=== PATIENT | male | born 1950 | race Caucasian/White ===

== ENCOUNTER 2024-02-18 05:22 | Day surgery (SDC) | payer MEDICARE, OTHER ==
[2024-02-18] MEDS: Dextrose 5%-0.45% NaCl 1,000 ML IV SCH (05:48)
[2024-02-18] MEDS ORDERED: Midazolam 1 MG/ML 2 ML SDV IV ONE (05:58)
[2024-02-18] MEDS ORDERED: fentaNYL 100 MCG/2 ML SDV IV ONE (05:58)
[2024-02-18] MEDS ORDERED: fentaNYL 100 MCG/2 ML SDV ONE (05:58)
[2024-02-18] MEDS ORDERED: Midazolam 1 MG/ML 2 ML SDV ONE (05:58)
[2024-02-18] MEDS: fentaNYL 100 MCG/2 ML SDV IV ONE ×2 (06:17→06:18)
[2024-02-18] MEDS: Midazolam 1 MG/ML 2 ML SDV IV ONE ×3 (06:18→06:23)
[2024-02-18 08:40] VITALS: BP 136/79; PULSE 86
== END 2024-02-18 09:15 | disposition home or self-care (01) ==
LOC: DL.ENDO 05:22
PROVIDERS: ATTEND Internal Medicine Gastroenterology
DX: Z12.11 Encounter for screening for malignant neoplasm of colon (principal); D12.2 Benign neoplasm of ascending colon; D12.3 Benign neoplasm of transverse colon; K57.30 Diverticulosis of large intestine without perforation or abscess without bleeding; K64.8 Other hemorrhoids; K64.4 Residual hemorrhoidal skin tags; I10 Essential (primary) hypertension; E78.5 Hyperlipidemia, unspecified; Z85.038 Personal history of other malignant neoplasm of large intestine
CPT/HCPCS: 45385; J2250; J3010; J7799